=== PATIENT | male | born 1965 | race Two or more races ===

== ENCOUNTER 2024-02-06 20:29 | Emergency (ER) | payer MEDICAID ==
[~2024-02-06] VITALS: Ht 175.3 cm; Wt 82.3 kg
[2024-02-06 21:25] LABS: Urine Bacteria None Seen /hpf (None Seen)
[2024-02-06 21:40] LABS: Urine Blood Negative /uL (Negative); Urine Clarity Clear (Clear); Urine Color Light-Yellow (Yellow); Urine Protein, UAD Negative (Negative); Urine Specific Gravity 1.019 (1.001-1.035); Urine Urobilinogen Normal (Negative); Urine WBC 1 /hpf (0 - 3)
[2024-02-06 23:49] VITALS: BP 148/72; PULSE 66; RESP 20; TEMP 97.7; O2SAT 98
== END 2024-02-07 00:17 | disposition home or self-care (01) ==
LOC: ER 20:29
DX: I87.8 Other specified disorders of veins (principal); R60.0 Localized edema; F17.210 Nicotine dependence, cigarettes, uncomplicated
CPT/HCPCS: 81001